=== PATIENT | female | born 1945 | race Caucasian/White ===

== ENCOUNTER 2020-12-20 13:46 | Observation (INO) | payer MEDICARE, BC ==
[~2020-12-20] VITALS: Ht 157.5 cm; Wt 67.7 kg
[2020-12-20] MEDS ORDERED: FLUTICASONE-SA1 EAC9 INH (14:07)
[2020-12-20] MEDS ORDERED: METFORMIN HCL500 M2 PO (14:08)
[2020-12-20] MEDS ORDERED: FUROSEMIDE40 MG PO (14:09)
[2020-12-20] MEDS ORDERED: PREGABALIN100 MG PO (14:09)
[2020-12-20] MEDS ORDERED: JANTOVEN5 M1 PO (14:09)
[2020-12-20] MEDS ORDERED: DILTIAZEM 24HR120 M4 PO (14:09)
[2020-12-20] MEDS ORDERED: CARVEDILOL12.5 MG PO (14:09)
[2020-12-20] MEDS ORDERED: ESTR2 PO (14:10)
[2020-12-20] MEDS ORDERED: PROZAC20 M3 PO (14:10)
[2020-12-20] MEDS ORDERED: LISI20 PO (14:11)
[2020-12-20 15:28] LABS: BASOPHILS ABSOLUTE AUTO 0.05 K/mm3 (0.00-0.23); BASOPHILS PERCENT AUTO 1 % (0-2); EOSINOPHILS ABSOLUTE AUTO 0.25 K/mm3 (0.00-0.68); EOSINOPHILS PERCENT AUTO 3 % (0-6); Hematocrit 37.8 % (33.0-51.0); Hemoglobin 12.7 g/dL (11.5-16.0); IMMATURE GRAN ABSOLUTE AUTO 0.02 K/mm3 (0.00-0.10); IMMATURE GRAN PERCENT AUTO 0 % (0-1); LYMPHOCYTES ABSOLUTE AUTO 2.14 K/mm3 (0.84-5.20); LYMPHOCYTES PERCENT AUTO 23 % (21-46); MONOCYTES ABSOLUTE AUTO 0.63 K/mm3 (0.16-1.47); MONOCYTES PERCENT AUTO 7 % (4-13); Mean Corpuscular HGB 31.3 pg (26.0-34.0); Mean Corpuscular HGB Conc 33.6 g/dL (31.5-36.5); Mean Corpuscular Volume 93 fL (80-100); Mean Platelet Volume 10.8 fL (9.1-12.4); NEUTROPHILS ABSOLUTE AUTO 6.18 K/mm3 (1.96-9.15); NEUTROPHILS PERCENT AUTO 67 % (41-73); Platelet Count 218 K/mm3 (150-400); RDW Coefficient Variation 12.7 % (11.7-14.2); RDW Standard Deviation 43.9 fL (35.1-46.3); Red Blood Cell Count 4.06 M/mm3 (3.80-5.20); White Blood Cell Count 9.27 K/mm3 (4.00-11.30)
[2020-12-20 15:37] LABS: Albumin, Blood 3.3 g/dL (3.4-5.0); Albumin/Globulin Ratio 0.8 (0.8-1.8); Bilirubin, Total 0.3 mg/dL (0.1-1.0); Bun/Creatinine Ratio 29.5 (12.0-20.0); Calcium, Blood 10.7 mg/dL (8.5-10.1); Creatinine, Blood 1.12 mg/dL (0.40-1.00); Potassium, Blood 3.7 mmol/L (3.5-5.5); Total Protein, Blood 7.3 g/dL (6.4-8.2)
[2020-12-20 16:35] LABS: Prothrombin Time Results 49.4 Sec (9.7-11.5)
[2020-12-20 16:53] LABS: International Normalized Ratio 5.06
[2020-12-20] MEDS ORDERED: WARF5 PO (18:03)
[2020-12-20] MEDS ORDERED: POTA8 PO (23:11)
[2020-12-20] MEDS ORDERED: MAGNESIUM OXID500 MG PO (23:12)
--- NOTE | 2020-12-21 00:56 | NUR ---
CALL PLACED TO HOSPITALIST DR. VILLAFANA, PT R FOREHEAD LACERATION BEGAN BLEEDING AGAIN AND IS SATURATING DRESSINGS AND REINFORCEMENTS. RECIEVED ORDER FOR THROMBIN CLOTTING POWDER AND MD STATES, MAY APPLY SURGICEL WELL.
--- NOTE | 2020-12-21 01:13 | NUR ---
OFFSHORE WIND OPERATIONS MANAGER ASSISTED PT. TO THE BR, PT. WAS UNSTEADY ON HER FEET. ONCE PT WAS BACK ON THE BED HER HEAD WOUND BEGAN TO BLEED AGAIN INTO HER EYE AND ON FACE. NURSE WAS ALERTED.
[2020-12-21 05:02] LABS: Hematocrit 29.8 % (33.0-51.0); Mean Corpuscular HGB 31.4 pg (26.0-34.0); Mean Corpuscular HGB Conc 33.6 g/dL (31.5-36.5); Mean Corpuscular Volume 94 fL (80-100); Platelet Count 196 K/mm3 (150-400); RDW Coefficient Variation 12.9 % (11.7-14.2); Red Blood Cell Count 3.18 M/mm3 (3.80-5.20); White Blood Cell Count 7.31 K/mm3 (4.00-11.30)
[2020-12-21 05:16] LABS: International Normalized Ratio 2.29; Prothrombin Time Results 23.4 Sec (9.7-11.5)
[2020-12-21 05:27] LABS: Albumin, Blood 2.8 g/dL (3.4-5.0); Albumin/Globulin Ratio 0.9 (0.8-1.8); Bilirubin, Total 0.4 mg/dL (0.1-1.0); Bun/Creatinine Ratio 27.9 (12.0-20.0); Calcium, Blood 9.6 mg/dL (8.5-10.1); Creatinine, Blood 1.04 mg/dL (0.40-1.00); Globulin, Blood 3.1 g/dL (2.2-4.0); Potassium, Blood 3.3 mmol/L (3.5-5.5); Total Protein, Blood 5.9 g/dL (6.4-8.2)
--- NOTE | 2020-12-21 05:33 | NUR ---
SHIFT SUMMARY: VSS. AFEB. AA0X3. MED FOR PAIN IN FOREHEAD AND NECK SEVERAL TIMES W/ SLIGHT IMPROVEMENT IN PAIN. PT WAS ABLE TO SLEEP WHEN LEFT UNDISTURBED. PT BANDAGES ON LACERATION ON FOREHEAD SATURATED AFTER AMBULATING TO THE BATHROOM. TOPICAL THROMBIN WELL COLLAGEN HEMOSTAT DRESSING APPLIED W/GAUZE AND KERLIX FOR PRESSURE. DRESSING SATURATED THROUGH IN 20 MIN. EXTERNAL GAUZE AND KERLIX CHANGED, LEAVING THROMBIN AND HEMOSTAT DRESSINGS IN PLACE. DRESSING HAS SINCE REMAINED CDI. PT HAS BILATERAL PERIORIBITAL BRUISING, W/ SWELLING ON R EYE. R FOREARM DRESSING REMAINS CDI, NO STRIKE THROUGH BLEEDING AT THIS SITE. WCTM.
--- NOTE | 2020-12-21 17:28 | NUR ---
SHIFT SUMMARY PT AxOx4. PLEASANT AND COOPERATIVE WITH CARE. BANDAGE ON HEAD WOUND AND R ARM WOUND CHANGED TODAY. DRESSINGS ALL C/D/I. C/O PAIN IN HEAD THIS AM. MEDICATED WITH TYLENOL X1. 1 PERSON ASSIST WITH FWW AND GB FOR TRANSFERS TO BATHROOM. PT HAD BED BATH AND HAIR WASHED TODAY BY 2ND PRESSMAN. PT STATES SHE STILL FEELS WEAK, BUT MUCH BETTER TODAY. PLAN IS POSSIBLE DC TO HOME TOMORROW. PT'S SISTER IN FOR VISIT TODAY. VITALS REVIEWED. BLOOD PRESSURES TRENDING LOW. PT IS CURRENTLY RESTING IN BED WITH CALL LIGHT IN REACH. DENIES ANY NEEDS AT THIS TIME.
[2020-12-22 04:49] LABS: Hematocrit 29.6 % (33.0-51.0); Hemoglobin 9.9 g/dL (11.5-16.0); Mean Corpuscular HGB 31.4 pg (26.0-34.0); Mean Corpuscular HGB Conc 33.4 g/dL (31.5-36.5); Mean Corpuscular Volume 94 fL (80-100); Mean Platelet Volume 10.7 fL (9.1-12.4); Platelet Count 181 K/mm3 (150-400); RDW Standard Deviation 45.1 fL (35.1-46.3); Red Blood Cell Count 3.15 M/mm3 (3.80-5.20); White Blood Cell Count 7.33 K/mm3 (4.00-11.30)
[2020-12-22 05:02] LABS: International Normalized Ratio 1.51; Prothrombin Time Results 15.8 Sec (9.7-11.5)
[2020-12-22 05:09] LABS: Bun/Creatinine Ratio 29.3 (12.0-20.0); Calcium, Blood 8.9 mg/dL (8.5-10.1); Creatinine, Blood 1.33 mg/dL (0.40-1.00); Potassium, Blood 3.8 mmol/L (3.5-5.5)
--- NOTE | 2020-12-22 06:05 | NUR ---
SHIFT SUMMARY: VSS. AFEB. AAOX4. PT STATES SHE IS FEELING OVERALL BETTER. STRONGER. DENIES DIZZINESS OR WEAKNESS W/ AMBULATION. DENIES HEADACHE. DRESSING TO R FOREHEAD REMAINS CDI WITH NO STRIKE THROUGH BLEEDING. NO ACUTE CHANGES OVERNIGHT.
--- NOTE | 2020-12-22 12:53 | NUR ---
DISCHARGE SUMMARY ADITI LEAVING BY WC TO GO HOME WITH SISTER AND BROTHER. PIV REMOVED, PAPERWORK GONE OVER. NEW MED FAXED TO [facility]. PT EDUCATED ON STOPPING WARFARIN. PT EDUCATED ON VITAMIN K FOODS, AND ITS IMPORTANCE TO STAY CONSISTENT WITH VIT K INTAKE TO KEEP INR AND PT THERAPEUTIC. PT STATES SHE WILL HAVE HER PCP SWITCH HER BACK TO [facility]. STICKER AT FRONT FOR CM TO MAKE PCP F/U FOR HER, SHE IS AWARE WE WILL CALL HER WITH A F/U APPT TOMORROW. DRESSING ON FOREHEAD CHANGED, WOUND C/D/I.
== END 2020-12-22 12:56 | disposition home or self-care (01) ==
LOC: ER 13:46 → MEDS 13:47
PROVIDERS: Physician Assistant; ADMIT Internal Medicine
DX: S01.81XA Laceration without foreign body of other part of head, initial encounter (principal); T45.515A Adverse effect of anticoagulants, initial encounter; I11.0 Hypertensive heart disease with heart failure; I50.9 Heart failure, unspecified; E11.9 Type 2 diabetes mellitus without complications; N17.9 Acute kidney failure, unspecified; J44.9 Chronic obstructive pulmonary disease, unspecified; I48.0 Paroxysmal atrial fibrillation; W01.0XXA Fall on same level from slipping, tripping and stumbling without subsequent striking against object, initial encounter; Z79.01 Long term (current) use of anticoagulants; Z79.84 Long term (current) use of oral hypoglycemic drugs; Z88.8 Allergy status to other drugs, medicaments and biological substances
CPT/HCPCS: 36415; 36430; 70450; 73080; 73140; 80048; 80053; 82947; 85025; 85027; 85610; 86900; 86901; 93005; 93010; 94640; 94760; 99285-25; A9270; G0378; J7030; P9059

== ENCOUNTER → 2021-01-07 | Outpatient (CLI) | payer MEDICARE, BC ==
[~2021-01-07] MED LIST: CARVEDILOL12.5 MG PO; DILTIAZEM 24HR120 M4 PO; ESTR2 PO; FLUTICASONE-SA1 EAC9 INH; FUROSEMIDE40 MG PO; JANTOVEN5 M1 PO; LISI20 PO; MAGNESIUM OXID500 MG PO; METFORMIN HCL500 M2 PO; POTA8 PO; PREGABALIN100 MG PO; PROZAC20 M3 PO; WARF5 PO
[2021-01-07 13:16] LABS: BASOPHILS ABSOLUTE AUTO 0.04 K/mm3 (0.00-0.23); BASOPHILS PERCENT AUTO 1 % (0-2); EOSINOPHILS ABSOLUTE AUTO 0.23 K/mm3 (0.00-0.68); EOSINOPHILS PERCENT AUTO 4 % (0-6); Hematocrit 33.2 % (33.0-51.0); Hemoglobin 10.9 g/dL (11.5-16.0); IMMATURE GRAN ABSOLUTE AUTO 0.01 K/mm3 (0.00-0.10); IMMATURE GRAN PERCENT AUTO 0 % (0-1); LYMPHOCYTES ABSOLUTE AUTO 1.73 K/mm3 (0.84-5.20); LYMPHOCYTES PERCENT AUTO 31 % (21-46); MONOCYTES ABSOLUTE AUTO 0.42 K/mm3 (0.16-1.47); MONOCYTES PERCENT AUTO 7 % (4-13); Mean Corpuscular HGB 32.2 pg (26.0-34.0); Mean Corpuscular HGB Conc 32.8 g/dL (31.5-36.5); Mean Corpuscular Volume 98 fL (80-100); Mean Platelet Volume 11.1 fL (9.1-12.4); NEUTROPHILS ABSOLUTE AUTO 3.21 K/mm3 (1.96-9.15); NEUTROPHILS PERCENT AUTO 57 % (41-73); Platelet Count 238 K/mm3 (150-400); RDW Coefficient Variation 13.6 % (11.7-14.2); RDW Standard Deviation 48.9 fL (35.1-46.3); Red Blood Cell Count 3.39 M/mm3 (3.80-5.20); White Blood Cell Count 5.64 K/mm3 (4.00-11.30)
[2021-01-07 13:29] LABS: International Normalized Ratio 0.97; Prothrombin Time Results 10.4 Sec (9.7-11.5)
[2021-01-07 14:08] LABS: Anion Gap 4 mmol/L (6-16); Blood Urea Nitrogen 18 mg/dL (8-24); Bun/Creatinine Ratio 20.5 (12.0-20.0); CO2, Blood 32 mmol/L (21-32); Calcium, Blood 8.5 mg/dL (8.5-10.1); Chloride, Blood 106 mmol/L (98-108); Creatinine, Blood 0.88 mg/dL (0.40-1.00); Glomerular Filtration Rate >60 (60-); Glucose, Blood 141 mg/dL (70-99); Potassium, Blood 3.9 mmol/L (3.5-5.5); Sodium, Blood 142 mmol/L (136-145)
== END | disposition home or self-care (01) ==
LOC: LAB SHORT 11:30 → LAB 11:30
PROVIDERS: Family Medicine
DX: D64.9 Anemia, unspecified (principal); E87.6 Hypokalemia; I48.20 Chronic atrial fibrillation, unspecified
CPT/HCPCS: 80048; 85025; 85610

== ENCOUNTER 2021-01-31 22:59 | Inpatient (IN) | payer MEDICARE, BC ==
[~2021-01-31] VITALS: Ht 154.9 cm; Wt 74.4 kg
[2021-01-31 23:23] LABS: PCO2 Arterial 40.5 mmHg (35-45); PO2 Arterial 52.5 mmHg (80-100)
[2021-01-31 23:31] LABS: BASOPHILS ABSOLUTE AUTO 0.06 K/mm3 (0.00-0.23); BASOPHILS PERCENT AUTO 0 % (0-2); EOSINOPHILS ABSOLUTE AUTO 0.16 K/mm3 (0.00-0.68); EOSINOPHILS PERCENT AUTO 1 % (0-6); Hemoglobin 10.9 g/dL (11.5-16.0); IMMATURE GRAN ABSOLUTE AUTO 0.05 K/mm3 (0.00-0.10); IMMATURE GRAN PERCENT AUTO 0 % (0-1); LYMPHOCYTES ABSOLUTE AUTO 1.91 K/mm3 (0.84-5.20); LYMPHOCYTES PERCENT AUTO 14 % (21-46); MONOCYTES ABSOLUTE AUTO 0.79 K/mm3 (0.16-1.47); MONOCYTES PERCENT AUTO 6 % (4-13); Mean Corpuscular HGB 32.4 pg (26.0-34.0); Mean Corpuscular Volume 98 fL (80-100); Mean Platelet Volume 11.5 fL (9.1-12.4); NEUTROPHILS ABSOLUTE AUTO 10.58 K/mm3 (1.96-9.15); NEUTROPHILS PERCENT AUTO 78 % (41-73); Platelet Count 237 K/mm3 (150-400); RDW Coefficient Variation 13.1 % (11.7-14.2); RDW Standard Deviation 46.4 fL (35.1-46.3); Red Blood Cell Count 3.36 M/mm3 (3.80-5.20); White Blood Cell Count 13.55 K/mm3 (4.00-11.30)
[2021-02-01 00:05] LABS: Albumin, Blood 3.1 g/dL (3.4-5.0); Albumin/Globulin Ratio 0.8 (0.8-1.8); Bilirubin, Total 0.4 mg/dL (0.1-1.0); Calcium, Blood 7.8 mg/dL (8.5-10.1); Creatinine, Blood 1.47 mg/dL (0.40-1.00); Globulin, Blood 3.7 g/dL (2.2-4.0); Potassium, Blood 4.3 mmol/L (3.5-5.5); Total Protein, Blood 6.8 g/dL (6.4-8.2)
[2021-02-01 00:07] LABS: Troponin I 1.93 ng/mL (0.000-0.040)
[2021-02-01 00:30] LABS: Influenza A, PCR NEGATIVE (NEGATIVE); Influenza B, PCR NEGATIVE (NEGATIVE); Resp Syncytial Virus, PCR NEGATIVE (NEGATIVE); SARS-Cov-2 (COVID-19) PCR, MMC NEGATIVE (NEGATIVE)
[2021-02-01 02:03] LABS: International Normalized Ratio 1.04; Prothrombin Time Results 11.1 Sec (9.7-11.5)
--- NOTE | 2021-02-01 02:30 | NUR ---
PT ADMITTED TO PCU VIA GURNEY FROM ER. PT IS ALERT AND ORIENTEDX3. PT ABLE TO STAND AND PIVOT TO PCU BED. PT HAS AUDIBLE WHEEZES. PT REPORTS SHE IS FEELING "MUCH BETTER." PT DENIES ANY PAIN. 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 PT ON 4L O2 VIA NC. PT IN NSR. CARDIO CONSULT IN PLACE. ORIENTED TO ROOM/CALL LIGHT. WILL CONTINUE TO MONITOR UNTIL AM SHIFT.
--- NOTE | 2021-02-01 04:30 | NUR ---
PT REQUESTING TYLENOL FOR HEADACHE PAIN, REPORTED TO PT TOO SOON. CONTACTED DR. PEYMAN Young LM.
--- NOTE | 2021-02-01 04:45 | NUR ---
DR. MORLEY RETURNED CALL, REPORTED REQUEST FOR STRONGER MEDICINE THAN TYLENOL FOR HEADACHE PAIN, HOWEVER I REPORTED TO DR. MORLEY PT IS NOW SLEEPING - SHE REPORTED TO LET HER SLEEP - NO NEW ORDERS OBTAINED.
--- NOTE | 2021-02-01 05:59 | NUR ---
SHIFT SUMMARY - NO ACUTE CHANGES SINCE ADMIT LAST NOC. PT CURRENTLY IS ON THE TELEPHONE. HEPARIN INFUSING WITHOUT COMPLICATIONS. CARDIO CONSULT CALLED IN THIS AM TO . PT HAS BEEN SLEEPING FOR THE LAST 1.5 HOURS. CALL LIGHT WITHIN REACH. BED IN LOW POSITION.
--- NOTE | 2021-02-01 13:07 | NUR ---
echocardiogram complete
--- NOTE | 2021-02-01 13:49 | NUR ---
PT BACK FROM [facility] AT 1315. VITAL SIGNS STABLE. PLAN TO TRANSFER TO [facility]. RIGHT RADIAL SIGHT WITH ARM BRACE. NO SIGNS OF BLEEDING OR HEMATOMA, SOFT/NONTENDER. HEPARIN RESTARTED. PT TO REMAIN NPO. WILL CONTINUE TO MONITOR.
--- NOTE | 2021-02-01 14:35 | NUR ---
VITALS SIGNS REMAIN STABLE. NO ACUTE CHANGES. TR BAND STILL IN PLACE. NO SIGNS OF BLEEDING OR HEMATOMA. NONTENDER AND SOFT. ARM BAND IN PLACE. HEPARIN INFUSING. ABLE TO USE BEDPAN WITH ASSISTANCE. SPOKE WITH DAUGHTER ON PHONE DISCUSSING PT STATUS AND TRANSFER. WILL CONTINUE TO MONITOR.
--- NOTE | 2021-02-01 15:21 | NUR ---
TRANSFER: PT ALERT AND ORIENTED X4. ON 4 L O2 SATING AT 93-94%. DENIES ACTIVE CHEST PAIN. TELE SHOWING SINUS WITH HR 80'S. SKIN C/D/I, NO WOUNDS OBSERVED. LUNG DIMINISHED AND CRACKLES HEARD AT THE BASES. AUDIBLE EXPIRATORY WHEEZE THIS AM RELIEVED WITH NEBULIZER TREATMENT. ECHO DONE THIS AM. PT TO [facility]ART [place] FOR ANGIO. POST ANGIO VITAL SIGNS STABLE, TR BAND ON RIGHT RADIAL. NO SIGNS OF BLEEDING OR HEMATOMA, NONTENDER AND SOFT. NO DRAINAGE NOTED. PT ABLE TO USE BEDPAN. DENIES ANY PAIN. COBRA TRANSFER TO [facility] VIA AMBULANCE. PT LEFT UNIT VIA GURNEY WITH HEPARIN INFUSING. TR BAND INSTRUCTIONS REVIEWED AND PT HISTORY DISCUSSED WITH EMS. REPORTED OFF TO MARC AT [facility].
== END 2021-02-01 15:10 | disposition short-term general hospital (02) | DRG 280 ==
LOC: ER 22:59 → PCU 02-01 02:12
PROVIDERS: Emergency Medicine; ADMIT Family Medicine
PROC: 4A023N7 Measurement of Cardiac Sampling and Pressure, Left Heart, Percutaneous Approach (ICD-10-PCS; principal; 2021-02-01)
PROC: B2111ZZ Fluoroscopy of Multiple Coronary Arteries using Low Osmolar Contrast (ICD-10-PCS; 2021-02-01)
PROC: 3E02340 Introduction of Influenza Vaccine into Muscle, Percutaneous Approach (ICD-10-PCS; 2021-02-01)
DX: I13.0 Hypertensive heart and chronic kidney disease with heart failure and stage 1 through stage 4 chronic kidney disease, or unspecified chronic kidney disease (principal); I21.4 Non-ST elevation (NSTEMI) myocardial infarction; J96.01 Acute respiratory failure with hypoxia; I50.33 Acute on chronic diastolic (congestive) heart failure; J44.1 Chronic obstructive pulmonary disease with (acute) exacerbation; N17.9 Acute kidney failure, unspecified; E11.22 Type 2 diabetes mellitus with diabetic chronic kidney disease; N18.30 Chronic kidney disease, stage 3 unspecified; I48.0 Paroxysmal atrial fibrillation; Z79.02 Long term (current) use of antithrombotics/antiplatelets; J44.9 Chronic obstructive pulmonary disease, unspecified; F32.9 Major depressive disorder, single episode, unspecified; Z88.8 Allergy status to other drugs, medicaments and biological substances; Z79.899 Other long term (current) drug therapy; Z79.84 Long term (current) use of oral hypoglycemic drugs; D63.1 Anemia in chronic kidney disease; Z87.891 Personal history of nicotine dependence; Z98.890 Other specified postprocedural states; Z90.710 Acquired absence of both cervix and uterus; Z23 Encounter for immunization
CPT/HCPCS: 0241U; 36415; 36600; 71045; 76937; 80053; 82803; 82947; 83605; 83880; 84145; 84484; 85025; 85610; 85730; 87040; 93005; 93010; 93306; 93458; 94640; 94762; 96365; 96366; 96375; 99152; 99153; 99285-25; A9270; C1769; C1894; J1644; J1815; J1940; J2250; J3010; J3475; J7030; J7040; Q9967